=== PATIENT | male | born 1940 | race African-American/Black ===

== ENCOUNTER 2018-08-15 13:20 | Emergency (ER) | payer OTHER ==
[~2018-08-15] VITALS: Ht 170.2 cm; Wt 73.9 kg
[2018-08-15] MEDS ORDERED: MICARDIS40 MG (13:28)
== END 2018-08-15 22:24 | disposition home or self-care (01) ==
LOC: ER 13:20
DX: N20.1 Calculus of ureter (principal); N20.0 Calculus of kidney

== ENCOUNTER 2018-10-28 13:16 | Outpatient (CLI) | payer OTHER ==
[~2018-10-28 13:16] MED LIST: MICARDIS40 MG
== END 2018-10-28 13:23 | disposition home or self-care (01) ==
LOC: LAB 13:16
DX: C64.2 Malignant neoplasm of left kidney, except renal pelvis (principal); N20.1 Calculus of ureter

== ENCOUNTER 2018-10-31 13:46 | Outpatient (CLI) | payer OTHER | END 2018-10-31 13:50 | disposition home or self-care (01) | LOC: LAB 13:46 | DX: N20.1 Calculus of ureter (principal); C64.2 Malignant neoplasm of left kidney, except renal pelvis; R97.20 Elevated prostate specific antigen [PSA] ==

== ENCOUNTER 2018-11-01 09:00 | Outpatient (CLI) | payer OTHER | END 2018-11-01 09:10 | disposition home or self-care (01) | LOC: TOM 09:00 | DX: N20.1 Calculus of ureter (principal); C64.2 Malignant neoplasm of left kidney, except renal pelvis | CPT/HCPCS: 74178; Q9965 ==

== ENCOUNTER 2018-12-09 16:24 | Emergency (ER) | payer OTHER ==
[~2018-12-09] VITALS: Ht 170.2 cm; Wt 79.4 kg
[2018-12-09] MEDS ORDERED: TAMS0.4C (16:36)
== END 2018-12-09 20:39 | disposition home or self-care (01) ==
LOC: ER 16:24
DX: N20.2 Calculus of kidney with calculus of ureter (principal); R10.32 Left lower quadrant pain

== ENCOUNTER 2019-07-04 00:20 | Emergency (ER) | payer OTHER ==
[~2019-07-04] VITALS: Ht 170.2 cm; Wt 74.8 kg
[~2019-07-04 00:20] MED LIST changes: +TAMS0.4C
[2019-07-04] MEDS ORDERED: UROCIT-K10 MEQ (00:36)
== END 2019-07-04 03:37 | disposition home or self-care (01) ==
LOC: ER 00:20
DX: R10.84 Generalized abdominal pain (principal); R11.0 Nausea

== ENCOUNTER 2020-03-04 05:20 | Emergency (ER) | payer OTHER ==
[~2020-03-04] VITALS: Ht 170.2 cm; Wt 76.2 kg
[~2020-03-04 05:20] MED LIST changes: +UROCIT-K10 MEQ
== END 2020-03-04 09:50 | disposition home or self-care (01) ==
LOC: ER 05:20
DX: N13.2 Hydronephrosis with renal and ureteral calculous obstruction (principal); N21.0 Calculus in bladder; K80.80 Other cholelithiasis without obstruction; R10.32 Left lower quadrant pain; R10.31 Right lower quadrant pain